=== PATIENT | female | born 1995 | race Caucasian/White ===

== ENCOUNTER 2016-11-12 09:30 | Emergency (ER) | payer BC ==
[2016-11-12 09:40] VITALS: BP 149/70; PULSE 94; RESP 16; TEMP 97.4
--- NOTE | 2016-11-12 10:05 | ED ---
Fall HPI - General Chief Complaint: Fall Stated Complaint: fall Time Seen by Provider: 11/12/16 09:53 Source: patient, RN notes reviewed Mode of arrival: ambulatory - History of Present Illness Initial Comments: 21-year-old female presents to the emergency department with a chief complaint of left shoulder pain. Patient states that she was riding her horse yesterday her horse in one day and she slid off the horse landing onto her back. Patient states she has pain to the left shoulder since. Patient states she has pain to the left anterior chest as well. Patient states she is taking when she takes a deep breath. Patient states she did not hit her head she has no neck pain. Patient denies any back pain or abdominal pain with this. Patient states she hasn't had any other symptoms. Patient states she has any pain with movement of the shoulder. Patient states she was concerned due to her continued symptoms and pain so she thought that she should be evaluated. Patient states the pain is worse to movement or touch. Patient denies any recent fever, chills , shortness of breath, chest pain, back pain, abdominal pain, nausea vomiting, numbness or tingling, dysuria or hematuria, constipation or diarrhea, headaches or visual changes, or any other current symptoms. - Related Data Home Medications Medication Instructions Recorded Confirmed Dextroamphetamine/Amphetamine 30 mg PO QAM 11/12/16 11/12/16 [Adderall Xr] Previous Rx's Medication Instructions Recorded Ibuprofen [Motrin] 600 mg PO Q6HR PRN #20 tab 11/12/16 Allergies Allergy/AdvReac Type Severity Reaction Status Date / Time amoxicillin Allergy Rash/Hives Verified 11/12/16 10:25 Review of Systems ROS Statement: Those systems with pertinent positive or pertinent negative responses have been documented in the HPI. ROS Other: All systems not noted in ROS Statement are negative. Past Medical History Past Medical History: Renal Disease History of Any Multi-Drug Resistant Organisms: None Reported Additional Past Surgical History / Comment(s): LEFT NEPHRECTOMY Past Psychological History: No Psychological Hx Reported Smoking Status: Current every day smoker Past Alcohol Use History: Occasional Past Drug Use History: None Reported General Exam - General Exam Comments Initial Comments: General: The patient is awake and alert, in no distress, and does not appear acutely ill. Eye: Pupils are equal, round and reactive to light, extra-ocular movements are intact; there is normal conjunctiva bilaterally. No signs of icterus. Ears, nose, mouth and throat: There are moist mucous membranes and no oral lesions. Neck: The neck is supple, there is no tenderness. Cardiovascular: There is a regular rate and rhythm. No murmur, rub or gallop is appreciated. Patient does appear to have some anterior left chest wall tenderness. Respiratory: Lungs are clear to auscultation, respirations are non-labored, breath sounds are equal. No wheezes, stridor, rales, or rhonchi. Gastrointestinal: Soft, non-distended, non-tender abdomen without masses or organomegaly noted. There is no rebound or guarding present. No CVA tenderness. Bowel sounds are unremarkable. Back: There is no tenderness to palpation in the midline. There is no obvious deformity. No rashes noted. Musculoskeletal: Patient has pain to palpation of the anterior shoulder. This appeared to be a possible deformity noted. Patient only has about 20% range of motion noted in all planes with inability to fully abduct the arm., There is no pedal edema. There is no calf tenderness or swelling. Sensation intact. Pulses equal bilaterally 2+. Neurological: CN II-XII intact, There are no obvious motor or sensory deficits. Coordination appears grossly intact. Speech is normal. Skin: Skin is warm and dry and no rashes or lesions are noted. Psychiatric: Cooperative, appropriate mood & affect, normal judgment. Limitations: no limitations Course Vital Signs 11/12/16 09:35 Temperature 97.4 F L Pulse Rate 94 Respiratory 16 Rate Blood Pressure 149/70 Procedures - Orthopedic Splinting/Casting Injury #1 Side: left Upper Extremity Injury Location: shoulder Upper Extremity Immobilizer: sling/shoulder immobilizer Medical Decision Making - Medical Decision Making 21-year-old female presents to emergency room chief complaint of left shoulder and chest pain after a fall. At this time we will get x-rays. At this time x- rays reviewed that have not shown acute processes. Patient at this time is most suspicious for a left chest wall strain. Patient is able to move the arm now that she knows it is broken however this is cause her discomfort. We did put her in a sling for comfort. We did discuss risk for shoulder to watch for. We will give her follow-up to work as well. Patient stated that she understood all questions have been answered. She will be discharged home. - Lab Data Lab Results 11/12/16 Range/Units 10:13 Urine HCG, Qual Not Detected (Not Detectd) - Radiology Data Radiology results: report reviewed, image reviewed Disposition Clinical Impression: Chest wall muscle strain Disposition: HOME SELF-CARE Condition: Stable Instructions: Muscle Strain (ED) Additional Instructions: Please use medication as discussed. Please follow up with family doctor if symptoms have not improved over the next two days. Please return to the emergency room if your symptoms increase or worsen or for any other concerns. Prescriptions: Ibuprofen [Motrin] 600 mg PO Q6HR PRN #20 tab PRN Reason: Pain Referrals: Latasha Faustin MD [Primary Care Provider] - 1-2 days Hernando Lee DO [Doctor of Osteopathic Medicine] - 1-2 days Time of Disposition: 11:42
--- NOTE | 2016-11-12 11:34 | XR ---
EXAMINATION TYPE: XR shoulder complete LT, XR clavicle LT DATE OF EXAM: 11/12/2016 11:26 AM CLINICAL HISTORY: Fall off horse injury with left shoulder and clavicular pain. TECHNIQUE: Three views of the left shoulder are obtained. 2 views the left clavicle are obtained. COMPARISON: None. FINDINGS: There is no acute fracture/dislocation evident in the left shoulder. The acromioclavicula r and glenohumeral joint spaces appear within normal limits. The visualized ribs are intact and unre markable. 2 views of left clavicle show no acute fracture or dislocation. Proximal growth plate is intact. Over lying soft tissue is unremarkable. IMPRESSION: There is no acute fracture or dislocation in the left clavicle or shoulder. If symptoms of pain persist, follow-up radiographs in 7-10 days may be beneficial to further evaluate .
--- NOTE | 2016-11-12 11:37 | XR ---
EXAMINATION TYPE: XR ribs LT w pa chest x-ray DATE OF EXAM: 11/12/2016 11:26 AM CLINICAL HISTORY: Chest and left-sided rib pain after fall off horse injury. TECHNIQUE: Single frontal view of the chest is obtained. A frontal and oblique images of the left-darryl ed ribs are acquired. COMPARISON: None FINDINGS: There is no focal air space opacity, pleural effusion, or pneumothorax seen. The cardiac silhouette size is within normal limits. The osseous structures are intact. Dedicated images of the left-sided ribs show no acute displaced fracture. Overlying soft tissue is un remarkable. IMPRESSION: 1. No acute cardiopulmonary process. 2. No acute displaced left-sided rib fractures are seen.
[2016-11-12] MEDS ORDERED: KETOROLAC 60 MG/2 ML VIAL IM STA (11:40)
== END 2016-11-12 12:22 | disposition home or self-care (01) ==
LOC: EC 09:30
DX: S29.011A Strain of muscle and tendon of front wall of thorax, initial encounter (principal); M25.512 Pain in left shoulder; Z79.899 Other long term (current) drug therapy; Z88.0 Allergy status to penicillin; V80.010A Animal-rider injured by fall from or being thrown from horse in noncollision accident, initial encounter
CPT/HCPCS: 81025; 71101; 73030; 73000; 99283; 96372; J1885